=== PATIENT | male | born 1965 | race Caucasian/White ===

== ENCOUNTER 2016-10-09 07:11 | Day surgery (SDC) | payer BC ==
[~2016-10-09] VITALS: Ht 180.3 cm; Wt 70.0 kg
[~2016-10-09 07:11] MED LIST: CeFAZolin 1 GM/DEXTROSE 50 ML IV ONE; PROPOFOL 1000 MG/ISO-OSM 200 ML IV ONE; RINGERS SOLUTION,LACTATED 1,000 ML IV ONE; SODIUM CHLORIDE 0.9% 1,000 ML IV ONE
[2016-10-09 07:30] LABS: BASOPHILS # (AUTO) 0.03 K/uL (0.00-0.20); BASOPHILS % (AUTO) 0.6 % (0.0-2.0); EOSINOPHILS # (AUTO) 0.31 K/uL (0.00-0.70); EOSINOPHILS % (AUTO) 5.42 % (1.0-6.0); HEMATOCRIT 42.3 % (41-53); HEMOGLOBIN 14.4 g/dL (13.5-17.5); LYMPHOCYTES # (AUTO) 1.3 K/uL (1.0-4.8); LYMPHOCYTES % (AUTO) 22.7 % (22.0-44.0); MEAN CORPUSCULAR HGB CONC 34.1 G/dL (31.0-37.0); MEAN CORPUSCULAR VOLUME 94 fL (80-100); MONOCYTES # (AUTO) 0.5 K/uL (0.1-1.0); MONOCYTES % (AUTO) 9.5 % (2.0-9.0); NEUTROPHILS # (AUTO) 3.5 K/uL (1.8-7.7); NEUTROPHILS % (AUTO) 61.8 % (40.0-70.0); PLATELET COUNT (AUTO) 272 K/uL (150-450); RED BLOOD CELL COUNT(AUTO) 4.51 MIL/uL (4.50-5.90); RED CELL DISTRIBUTION WIDTH 13.5 % (11.5-14.5); WHITE BLOOD COUNT (AUTO) 5.7 K/uL (4.5-11.0)
[2016-10-09] MEDS ORDERED: LORazepam 2 MG/ML VIAL IVP ONE (07:30)
[2016-10-09 07:35] LABS: ANION GAP 7 mmol/L (8-16); CALCIUM, TOTAL 8.8 mg/dL (8.8-10.5); CARBON DIOXIDE 29 mmol/L (22-29); CHLORIDE 105 mmol/L (98-107); CREATININE 0.96 mg/dL (0.60-1.30); GLOMERULAR FILTR. RATE CALC > 60 mL/min (>60); POTASSIUM 4.4 mmol/L (3.5-5.1); SODIUM SERUM 141 mmol/L (136-145); UREA NITROGEN, BLOOD 7 mg/dL (7-18)
[2016-10-09 07:37] LABS: PROTHROMBIN TIME 10.3 SEC (9.4-11.6)
[2016-10-09] MEDS ORDERED: LIDOCAINE HCL/PF 1% 30 ML VIAL ONE (08:27)
[2016-10-09] MEDS ORDERED: MIDAZOLAM HCL 2 MG/2 ML VIAL ONE (08:27)
[2016-10-09] MEDS ORDERED: IODIXANOL 320 MG/ML 100 ML VIAL ONE (08:27)
[2016-10-09] MEDS ORDERED: FentaNYL CITRATE-PF 100 MCG/2 ML VIAL ONE (08:27)
[2016-10-09] MEDS ORDERED: HEPARIN SODIUM 1000 UNITS/NS 500 ML ONE (08:28)
[2016-10-09] MEDS ORDERED: SODIUM BICARBONATE 50 MEQ/50 ML VIAL ONE (08:28)
[2016-10-09 08:35] VITALS: BP 148/76
[2016-10-09] MEDS ORDERED: LIDOCAINE 1% 30 ML/SOD BICARB 8.4% 4 ML SQ ONE (09:00)
[2016-10-09] MEDS ORDERED: FentaNYL CITRATE-PF 100 MCG/2 ML VIAL IVP ONE ×2 (09:00)
[2016-10-09] MEDS ORDERED: IODIXANOL 320 MG/ML 100 ML VIAL IARTER ONE (09:00)
[2016-10-09] MEDS ORDERED: HEPARIN SODIUM 1000 UNITS/NS 500 ML IV ONE (09:00)
[2016-10-09] MEDS ORDERED: CIPROFLOXACIN 400 MG/D5% WATER 200 ML IV ONE (09:00)
[2016-10-09] MEDS ORDERED: MIDAZOLAM HCL 2 MG/2 ML VIAL IVP ONE ×3 (09:00→12:00)
[2016-10-09 11:30] VITALS: BP 124/86
[2016-10-09] MEDS ORDERED: KETAMINE HCL 50 MG/ML 10 ML VIAL IVP ONE (12:00)
[2016-10-09] MEDS ORDERED: FentaNYL CITRATE-PF 250 MCG/5 ML VIAL IVP ONE (12:00)
[2016-10-09] MEDS ORDERED: FentaNYL CITRATE-PF 100 MCG/2 ML VIAL IVP PRN (12:15)
[2016-10-09] MEDS ORDERED: MEPERIDINE-PF 25 MG/ML SYRINGE IVP PRN (12:15)
[2016-10-09] MEDS ORDERED: ONDANSETRON HCL 4 MG/2 ML VIAL IVP PRN (12:15)
[2016-10-09] MEDS ORDERED: PROMETHAZINE HCL 25 MG TABLET PO PRN (12:15)
[2016-10-09] MEDS ORDERED: MORPHINE SULFATE 2 MG/ML SYRINGE IVP PRN (12:15)
[2016-10-09] MEDS ORDERED: HYDROmorphone 2 MG/ML SYRINGE IVP PRN ×2 (12:15)
[2016-10-09] MEDS ORDERED: OxyCODONE HCL/ACETAMINOPHEN 5-325 MG TABLET PO PRN (12:15)
[2016-10-09] MEDS ORDERED: SODIUM CHLORIDE 0.9% 1,000 ML IV ONE ×4 (12:25→15:04)
[2016-10-09] MEDS ORDERED: HYDROmorphone 2 MG/ML SYRINGE ONE (12:28)
[2016-10-09] MEDS ORDERED: OxyCODONE HCL/ACETAMINOPHEN 5-325 MG TABLET ONE (13:29)
== END 2016-10-09 16:15 | disposition home or self-care (01) ==
LOC: SDS 07:11
PROVIDERS: ATTEND Radiology Diagnostic Radiology
DX: D49.4 Neoplasm of unspecified behavior of bladder (principal)
CPT/HCPCS: 36247; 36415; 37243; 51030; 75625; 75736; 75774; 80048; 85025; 85610; 88108; 88342; C1760; C1769 ×2; C1887 ×3; C1892 ×2; C2618; J0690; J0744; J1170; J1644; J2250; J2704; J3010 ×2; J3490 ×3; J7030; Q9967; 20983; 76937; 76942; 88341

== ENCOUNTER 2016-12-27 11:32 | Observation (INO) | payer BC ==
[~2016-12-27] VITALS: Ht 180.3 cm; Wt 72.6 kg
[~2016-12-27 11:32] MED LIST changes: -CeFAZolin 1 GM/DEXTROSE 50 ML IV ONE; -PROPOFOL 1000 MG/ISO-OSM 200 ML IV ONE; -RINGERS SOLUTION,LACTATED 1,000 ML IV ONE
[2016-12-27] MEDS ORDERED: FentaNYL CITRATE-PF 100 MCG/2 ML VIAL IVP ONE (12:00)
[2016-12-27] MEDS ORDERED: PROPOFOL 1% 20 ML VIAL IVP ONE (12:00)
[2016-12-27] MEDS ORDERED: PROPOFOL 1% ISO-OSM 1000 MG/100 ML BOTTLE IV ONE (12:00)
[2016-12-27] MEDS ORDERED: DEXAMETHASONE SOD PHOS 4 MG/ML VIAL IVP ONE (12:00)
[2016-12-27 12:08] LABS: BASOPHILS % (AUTO) 0.2 % (0.0-2.0); EOSINOPHILS % (AUTO) 3.7 % (1.0-6.0); HEMOGLOBIN 13.4 g/dL (13.5-17.5); LYMPHOCYTES # (AUTO) 1.6 K/uL (1.0-4.8); LYMPHOCYTES % (AUTO) 23.9 % (22.0-44.0); MEAN CORPUSCULAR HEMOGLOBIN 30.6 pg (26.0-34.0); MEAN CORPUSCULAR HGB CONC 31.8 G/dL (31.0-37.0); MEAN CORPUSCULAR VOLUME 96 fL (80-100); MONOCYTES # (AUTO) 0.6 K/uL (0.1-1.0); NEUTROPHILS # (AUTO) 4.3 K/uL (1.8-7.7); NEUTROPHILS % (AUTO) 63.2 % (40.0-70.0); PLATELET COUNT (AUTO) 290 K/uL (150-450); RED BLOOD CELL COUNT(AUTO) 4.37 MIL/uL (4.50-5.90); RED CELL DISTRIBUTION WIDTH 13.5 % (11.5-14.5); WHITE BLOOD COUNT (AUTO) 6.9 K/uL (4.5-11.0)
[2016-12-27 12:18] LABS: ANION GAP 8 mmol/L (8-16); CALCIUM, TOTAL 8.9 mg/dL (8.8-10.5); CARBON DIOXIDE 30 mmol/L (22-29); CHLORIDE 105 mmol/L (98-107); CREATININE 0.82 mg/dL (0.60-1.30); GLOMERULAR FILTR. RATE CALC > 60 mL/min (>60); POTASSIUM 3.7 mmol/L (3.5-5.1); SODIUM SERUM 143 mmol/L (136-145); UREA NITROGEN, BLOOD 12 mg/dL (7-18)
[2016-12-27] MEDS ORDERED: CALCIUM LACTATE PO (12:21)
[2016-12-27] MEDS ORDERED: [UNRECOGNIZED DRUG - OTHER] PO (12:21)
[2016-12-27] MEDS ORDERED: [UNRECOGNIZED DRUG - OTHER] PO (12:21)
[2016-12-27] MEDS ORDERED: [UNRECOGNIZED DRUG - OTHER] PO (12:21)
[2016-12-27] MEDS ORDERED: VITAMIN E PO (12:21)
[2016-12-27] MEDS ORDERED: CATAPLEX B PO (12:21)
[2016-12-27] MEDS ORDERED: [UNRECOGNIZED DRUG - OTHER] PO (12:21)
[2016-12-27] MEDS ORDERED: ASCO10007 IV (12:21)
[2016-12-27] MEDS ORDERED: [UNRECOGNIZED DRUG - REMARK] PO (12:21)
[2016-12-27] MEDS ORDERED: CHOL200016 PO (12:21)
[2016-12-27] MEDS ORDERED: [UNRECOGNIZED DRUG - OTHER] PO (12:21)
[2016-12-27] MEDS ORDERED: ASCO10007 PO ×2 (12:21)
[2016-12-27 12:24] LABS: ALANINE AMINOTRANSFERASE 27 U/L (12-78); ALBUMIN 4.2 g/dL (3.4-5.0); ASPARTATE AMINOTRANSFERASE 17 U/L (15-37); BILIRUBIN,TOTAL 0.5 mg/dL (0.1-1.0); TOTAL PROTEIN, SERUM 7.3 g/dL (6.4-8.2)
[2016-12-27 12:25] LABS: PROTHROMBIN TIME 10.7 SEC (9.4-11.6)
[2016-12-27] MEDS ORDERED: [UNRECOGNIZED DRUG - OTHER] PO (12:25)
[2016-12-27] MEDS ORDERED: CURCUMIN PO (12:25)
[2016-12-27] MEDS ORDERED: [UNRECOGNIZED DRUG - OTHER] PO ×2 (12:25)
[2016-12-27] MEDS ORDERED: [UNRECOGNIZED DRUG - OTHER] PO (12:30)
[2016-12-27] MEDS ORDERED: [UNRECOGNIZED DRUG - OTHER] PO (12:30)
[2016-12-27] MEDS ORDERED: [UNRECOGNIZED DRUG - OTHER] PO (12:30)
[2016-12-27] MEDS ORDERED: [UNRECOGNIZED DRUG - OTHER] PO (12:30)
[2016-12-27] MEDS ORDERED: [UNRECOGNIZED DRUG - OTHER] PO (12:30)
[2016-12-27] MEDS ORDERED: LORazepam 2 MG/ML VIAL IVP PRN (13:00)
[2016-12-27] MEDS ORDERED: SODIUM CHLORIDE 0.9% 1,000 ML IV ONE (13:00)
[2016-12-27] MEDS ORDERED: CIPROFLOXACIN 400 MG/D5% WATER 200 ML IV ONE ×2 (13:00)
[2016-12-27] MEDS ORDERED: HEPARIN SODIUM 1000 UNITS/NS 500 ML ONE ×2 (15:54→18:03)
[2016-12-27] MEDS ORDERED: SODIUM BICARBONATE 50 MEQ/50 ML VIAL ONE (15:54)
[2016-12-27] MEDS ORDERED: LIDOCAINE HCL/PF 1% 30 ML VIAL ONE (15:54)
[2016-12-27] MEDS ORDERED: IOHEXOL 300 MG/ML 100 ML VIAL ONE (16:18)
[2016-12-27 16:19] VITALS: BP 142/79
[2016-12-27] MEDS ORDERED: LIDOCAINE 1% 30 ML/SOD BICARB 8.4% 4 ML SQ ONE (16:32)
[2016-12-27] MEDS ORDERED: HEPARIN SODIUM 1000 UNITS/NS 500 ML IARTER ONE ×2 (16:33)
[2016-12-27] MEDS ORDERED: IOHEXOL 300 MG/ML 100 ML VIAL IARTER ONE (16:40)
[2016-12-27] MEDS ORDERED: IOHEXOL 300 MG/ML 50 ML VIAL IARTER ONE ×2 (16:40)
[2016-12-27] MEDS ORDERED: IOHEXOL 300 MG/ML 50 ML VIAL ONE (17:35)
[2016-12-27] MEDS ORDERED: FentaNYL CITRATE-PF 100 MCG/2 ML VIAL IVP PRN (19:30)
[2016-12-27] MEDS ORDERED: HYDROmorphone 2 MG/ML SYRINGE IVP PRN (19:30)
[2016-12-27] MEDS ORDERED: OxyCODONE HCL/ACETAMINOPHEN 5-325 MG TABLET PO PRN (19:30)
[2016-12-27] MEDS ORDERED: PROMETHAZINE HCL 25 MG/ML VIAL IM ONE (19:30)
[2016-12-27] MEDS ORDERED: ONDANSETRON HCL 4 MG/2 ML VIAL IVP PRN (19:30)
[2016-12-27] MEDS ORDERED: MEPERIDINE-PF 25 MG/ML SYRINGE IVP PRN (19:30)
[2016-12-27] MEDS ORDERED: MIDAZOLAM HCL 2 MG/2 ML VIAL IVP ONE (19:34)
[2016-12-27] MEDS ORDERED: OXYGEN THERAPY IH SCH (20:00)
[2016-12-27 21:04] VITALS: BP 122/78
[2016-12-27 23:15] VITALS: BP 115/69
[2016-12-27] MEDS: HYDROmorphone 2 MG/ML SYRINGE IVP PRN (23:55)
[2016-12-28] MEDS ORDERED: SODIUM CHLORIDE 0.9% 100 ML ONE (03:16)
[2016-12-28 04:24] VITALS: BP 107/57
[2016-12-28 07:00] VITALS: BP 98/56
[2016-12-28] MEDS ORDERED: SODIUM CHLORIDE 0.9% 1,000 ML IV ONE (07:00)
[2016-12-28] MEDS ORDERED: CIPROFLOXACIN 400 MG/D5% WATER 200 ML IV ONE (07:00)
[2016-12-28] MEDS ORDERED: LORazepam 2 MG/ML VIAL IVP PRN (07:00)
[2016-12-28] MEDS ORDERED: SODIUM CHLORIDE 0.9% 1,000 ML IV SCH (09:00)
[2016-12-28] MEDS ORDERED: MEPERIDINE-PF 25 MG/ML SYRINGE IVP PRN (10:15)
[2016-12-28] MEDS ORDERED: HYDROmorphone 2 MG/ML SYRINGE IVP PRN (10:15)
[2016-12-28] MEDS ORDERED: FentaNYL CITRATE-PF 100 MCG/2 ML VIAL IVP PRN (10:15)
[2016-12-28 11:00] VITALS: BP 119/77
[2016-12-28] MEDS: HYDROmorphone 2 MG/ML SYRINGE IVP PRN (15:16)
[2016-12-28 19:13] VITALS: BP 130/77
[2016-12-28] MEDS ORDERED: FentaNYL CITRATE-PF 100 MCG/2 ML VIAL IVP ONE (19:34)
[2016-12-28] MEDS ORDERED: KETAMINE HCL 50 MG/ML 10 ML VIAL IVP ONE (19:34)
[2016-12-28] MEDS ORDERED: MIDAZOLAM HCL 2 MG/2 ML VIAL IVP ONE (19:34)
== END 2016-12-28 19:35 | disposition home or self-care (01) ==
LOC: SDS 11:32 → 5N 11:33 → INTOOBSV 19:58 → UNDOADMOB 19:58 → 5N 19:58
PROVIDERS: ADMIT Hospitalist; ATTEND Hospitalist
DX: C67.9 Malignant neoplasm of bladder, unspecified (principal); N30.91 Cystitis, unspecified with hematuria; Z85.51 Personal history of malignant neoplasm of bladder
CPT/HCPCS: 36247; 36248; 36415; 51102; 75736; 76942; 80053; 85025; 85610; 85730; 93005; 96365; 96375 ×2; 96376; 99152 ×2; 99153 ×2; C1769; C1892; G0378 ×2; J0744 ×2; J1100; J1170 ×2; J1644; J2250 ×2; J2405; J2704 ×2; J3010 ×2; J3490 ×3; J7030; J7050; Q9967 ×2; 36245; 76937

== ENCOUNTER 2017-01-10 08:23 | Emergency (ER) | payer BC ==
[~2017-01-10] VITALS: Ht 180.3 cm; Wt 75.5 kg
[~2017-01-10 08:23] MED LIST changes: +ASCO10007 IV; +ASCO10007 PO; +CALCIUM LACTATE PO; +CATAPLEX B PO; +CHOL200016 PO; +CURCUMIN PO; -SODIUM CHLORIDE 0.9% 1,000 ML IV ONE; +VITAMIN E PO; +[UNRECOGNIZED DRUG - OTHER] PO; +[UNRECOGNIZED DRUG - OTHER] PO; +[UNRECOGNIZED DRUG - OTHER] PO; +[UNRECOGNIZED DRUG - OTHER] PO; +[UNRECOGNIZED DRUG - OTHER] PO; +[UNRECOGNIZED DRUG - OTHER] PO; +[UNRECOGNIZED DRUG - OTHER] PO; +[UNRECOGNIZED DRUG - OTHER] PO; +[UNRECOGNIZED DRUG - OTHER] PO; +[UNRECOGNIZED DRUG - OTHER] PO; +[UNRECOGNIZED DRUG - OTHER] PO; +[UNRECOGNIZED DRUG - OTHER] PO; +[UNRECOGNIZED DRUG - REMARK] PO
[2017-01-10 08:32] VITALS: BP 153/89
== END 2017-01-10 10:51 | disposition home or self-care (01) ==
LOC: EMS 08:24
DX: Z46.6 Encounter for fitting and adjustment of urinary device (principal); Z88.5 Allergy status to narcotic agent
CPT/HCPCS: 36590; 99284